=== PATIENT | male | born 1985 | race Caucasian/White ===

== ENCOUNTER 2018-01-02 09:24 | Inpatient (IN) | payer SELFPAY ==
[~2018-01-02] VITALS: Ht 190.5 cm; Wt 178.3 kg
[2018-01-02] MEDS ORDERED: KETOROLAC TROMETHAMINE 30 MG/ML VIAL IV STA (09:43)
[2018-01-02] MEDS ORDERED: VANCOMYCIN 1GM/NS 250 ML 250 ML IV ONE (09:45)
[2018-01-02] MEDS ORDERED: PIPER-TAZ 3.375 GM 50 ML IV ONE (09:45)
[2018-01-02] MEDS ORDERED: SODIUM CHLORIDE 0.9% 1000ML 1,000 ML IV ONE (09:45)
[2018-01-02] MEDS ORDERED: MORPHINE SULFATE 4 MG/ML SYR IV ONE (09:45)
[2018-01-02] MEDS ORDERED: MORPHINE SULFATE 2 MG/ML SYR ONE (10:14)
[2018-01-02 10:57] LABS: ALANINE AMINOTRANSFERASE 14 IU/L (0-55); ALBUMIN/GLOBULIN RATIO 0.6 (0.8-2.0); ALKALINE PHOSPHATASE 95 IU/L (40-150); ANION GAP 13.1 mmol/L (8-16); BLOOD UREA NITROGEN 8 mg/dL (7-26); BUN/CREATININE RATIO 10 (6-25); CALCIUM 9.4 mg/dL (8.4-10.2); CARBON DIOXIDE 25 mmol/L (22-29); CHLORIDE 104 mmol/L (98-107); CREATININE, SERUM 0.81 mg/dL (0.72-1.25); EST GLOMERULAR FILTRATION RATE > 60 ML/MIN (60-); GLUCOSE 162 mg/dL (74-118); POTASSIUM 4.1 mmol/L (3.5-5.1); SODIUM 138 mmol/L (136-145)
[2018-01-02] MEDS ORDERED: LIDOCAINE 2%/ EPINEPHRINE 20ML MDV ONE (10:57)
[2018-01-02 11:28] LABS: BASOPHILS # (AUTO) 0.1 (0.0-0.1); BASOPHILS % 0.3 % (0.0-1.0); EOSINOPHILS # (AUTO) 0.2 (0.0-0.4); EOSINOPHILS % 1.4 % (0.0-6.0); HEMATOCRIT 41.1 % (38.2-49.6); HEMOGLOBIN 14.2 g/dL (14.0-18.0); LYMPHOCYTES # (AUTO) 1.4 (1.0-3.2); LYMPHOCYTES % 8.7 % (18.0-39.1); MEAN CORPUSCULAR HEMOGLOBIN 30.5 pg (28-32); MEAN CORPUSCULAR HGB CONC 34.5 g/dL (31-35); MEAN CORPUSCULAR VOLUME 88.2 fL (81-99); MONOCYTES # (AUTO) 1.3 (0.2-0.8); MONOCYTES % 8.3 % (4.4-11.3); NEUTROPHILS # (AUTO) 12.6 (2.1-6.9); NEUTROPHILS % 80.7 % (38.7-80.0); PLATELET COUNT 318 x10e3/uL (140-360); RED BLOOD COUNT 4.66 x10e6/uL (4.3-5.7); RED CELL DISTRIBUTION WIDTH 13.1 % (11.7-14.4)
--- NOTE | 2018-01-02 11:31 | Diagnostic Imaging Report ---
PROCEDURE:X-RAY LEFT KNEE, ONE OR TWO VIEWS COMPARISON:None. INDICATIONS:LEFT KNEE SWELLING, SKIN INFECTION FINDINGS: The bones are well-mineralized. There are no fractures, subluxations, lytic or blastic lesions. No bony erosions or evidence of osteomyelitis. 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 Degenerative spurring of the patella. There is no evidence of a joint effusion. Diffuse soft tissue swelling. CONCLUSION: No acute bony abnormality. Diffuse soft tissue swelling. Alan Flores D.O. Dictated by: Alan Flores D.O. on 01/02/2018 at 11:33 Electronically approved by: Alan Flores D.O. on 01/02/2018 at 11:33
[2018-01-02 12:13] LABS: BODY FLUID APPEARANCE TURBID; BODY FLUID COLOR RED
[2018-01-02 12:14] LABS: GLUCOSE,BODY FLUID 9 mg/dL; RBC,BODY FLUID 110286 cells/uL; WBC,BODY FLUID 176814 cells/uL
[2018-01-02 12:16] LABS: BODY FLUID TYPE ASPIRATE
[2018-01-02] MEDS ORDERED: ONDANSETRON HCL INJ 2 MG/ML VIAL IV PRN (12:45)
[2018-01-02] MEDS ORDERED: SODIUM CHLORIDE FLUSH 10 ML SYR INJ PRN (12:45)
[2018-01-02] MEDS ORDERED: PIPER-TAZ 3.375 GM 50 ML IV SCH (12:45)
[2018-01-02] MEDS ORDERED: VANCOMYCIN 1GM/NS 250 ML 250 ML IV SCH ×2 (12:45→23:00)
[2018-01-02] MEDS ORDERED: ONDANSETRON HCL 4 MG ORAL DISINTEGRATING TAB SL PRN (13:00)
[2018-01-02 13:25] LABS: LYMPHOCYTES,BODY FLUID 11 %; MONO/MACROPHG,BODY FLUID 8 %; NEUTROPHILS,BODY FLUID 79 %; OTHER CELLS,BODY FLUID 2 %
--- NOTE | 2018-01-02 14:03 | Diagnostic Imaging Report ---
TECHNIQUE: Computed tomography imaging of the LEFT KNEE was performed WITHOUT injected contrast. HISTORY: Knee pain COMPARISON: None available. FINDINGS: No fracture. No periostitis or cortical erosion. Soft tissue abscess within the medial right lower extremity extending approximately 13 cm in craniocaudal dimension and measuring approximately 7.5 x 3 cm in maximum axial dimension. Adjacent skin thickening at the medial leg and generalized subcutaneous edema. No knee joint effusion. IMPRESSION: 13 cm soft tissue abscess medial lower extremity at the level of the knee. Cellulitis. Signed by: Dr. Nakul Freeman M.D. on 01/02/2018 1:59 PM
--- OUTSIDE RECORDS SUMMARY | 2018-01-02 14:23 | XMS REPORT ---
Author Author [facility] Address Unknown Phone Unavailable Care Team Providers Care Roll Off Driver Name Role Phone ANIRUDH WALTERS Unavailable Unavailable Problems This patient has no known problems. Allergies, Adverse Reactions, Alerts This patient has no known allergies or adverse reactions. Medications This patient has no known medications. Results Test Description Test Time Test Comments Text Results Atomic Results Result Comments CT LEFT LOWER EXTREMITY W [place] [id number] [place] [address] Patient Name: JASEN DENISE II MR #: [id number] : 1985 Age/Sex: 32/M Req #: [id number] Adm Physician: Ordered by: ANIRUDH WALTERS MD Report #: [id number] Location: ER Room/Bed: Procedure: [id number] CT/CT LEFT LOWER EXTREMITY W Exam Date: 01/02/18 Exam Time: 1316 REPORT STATUS: Signed TECHNIQUE: Computed tomography imaging of the LEFT KNEE was performed WITHOUT injected contrast. HISTORY: Knee pain COMPARISON: None available. FINDINGS : No fracture. No periostitis or cortical erosion. Soft tissue abscess within the medial right lower extremity extending approximately 13 cm in craniocaudal dimension and measuring approximately 7.5 x 3 cm in maximum axial dimension. Adjacent skin thickening at the medial leg and generalized subcutaneous edema. No knee joint effusion. IMPRESSION: 13 cm soft tissue abscess medial lower extremity at the level of the knee. Cellulitis. Signed by: Dr. Tashi Tompkins M.D. on 01/02/2018 1:59 PM Dictated By: TASHI TOMPKINS MD [id number] Transcribed By: JAZZMINE on 01/02/18 2805 COPY TO: ANIRUDH WALTERS MD KNEE LEFT 1-2 VIEWS [place] [address] Patient Name: JASEN DENISE II MR #: [id number] : 1985 Age/Sex: 32/M Req #: [id number] Adm Physician: Ordered by: ANIRUDH WALTERS MD Report #: [id number] Location: ER Room/Bed: Procedure: [id number] DX/KNEE LEFT 1-2 VIEWS Exam Date: 01/02/18 Exam Time: 1010 REPORT STATUS: Signed PROCEDURE: X-RAY LEFT KNEE, ONE OR TWO VIEWS COMPARISON: None. INDICATIONS: LEFT KNEE SWELLING, SKIN INFECTION FINDINGS: The bones are well- mineralized. There are no fractures, subluxations, lytic or blastic lesions. No bony erosions or evidence of osteomyelitis. 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 Degenerative spurring of the patella. There is no evidence of a joint effusion. Diffuse soft tissue swelling. CONCLUSION: No acute bony abnormality. Diffuse soft tissue swelling. Faustino Flores D.O. Dictated by: Faustino Flores D.O. on at 11:33 Electronically approved by: Faustino Flores D.O. on 01/02 at 11:33 Dictated By: FAUSTINO FLORES DO 1133 Transcribed By: ROD on 01/02/18 1133 COPY TO: ANIRUDH WALTERS MD
[2018-01-02] MEDS ORDERED: SODIUM CHLORIDE 0.9% 50ML 50 ML ONE (14:30)
[2018-01-02] MEDS ORDERED: IOPAMIDOL 370 MG/ML 200 ML INFUS..BTL INJ ONE (14:31)
[2018-01-02] MEDS: SODIUM CHLORIDE 0.9% 1000ML 1,000 ML IV SCH ×2 (14:34→17:28)
[2018-01-02 15:31] LABS: RBC,BODY FLUID 31680 cells/uL; WBC,BODY FLUID 39699 cells/uL
--- NOTE | 2018-01-02 16:22 | Diagnostic Imaging Report ---
PROCEDURE: A single AP view of the chest. COMPARISON: None. INDICATIONS: SEPSIS FINDINGS: See impression. IMPRESSION: 1. mildly hypoinflated lungs. No consolidation or effusion. 2. Cardiac silhouette is unremarkable. Mild central pulmonary venous congestion. No overt pulmonary edema. 3. No acute bony abnormalities. Nas Reeves M.D. Dictated by: Nas Reeves M.D. on 01/02/2018 at 16:24 Electronically approved by: Nas Reeves M.D. on 01/02/2018 at 16:24
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
--- NOTE | 2018-01-02 16:40 | History and Physical ---
ADDENDUM Case discussed at length with emergency room physician. Approximately 100 mL of bloody purulence fluid was aspirated from the joint itself under ultrasound guidance. Job#: [id number] OFELIA
[2018-01-02 17:00] VITALS: BP 146/74
[2018-01-02] MEDS: PIPER-TAZ 3.375 GM 100 ML IV SCH (17:17)
[2018-01-02] MEDS: FAMOTIDINE 20 MG/2 ML VIAL IV SCH (17:17)
[2018-01-02] MEDS: MORPHINE SULFATE 2 MG/ML SYR IV PRN ×2 (17:18→22:16)
[2018-01-02 17:51] VITALS: BP 146/74
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
[2018-01-02 18:21] VITALS: BP 146/74
[2018-01-02 20:11] VITALS: BP 140/58
[2018-01-02] MEDS: VANCOMYCIN HCL 1.5 GM in SODIUM CHLORIDE 0.9% 250ML 300 ML IV SCH (22:08)
[2018-01-02] MEDS: HEPARIN SOD (PORCINE) 5,000 UNIT/ML VIAL SC SCH (22:09)
[2018-01-03] VITALS (8 sets, daily range): BP systolic 114–150; BP diastolic 54–73
[2018-01-03] MEDS: PIPER-TAZ 3.375 GM 100 ML IV SCH ×5 (00:06→22:50)
[2018-01-03] MEDS: MORPHINE SULFATE 2 MG/ML SYR IV PRN ×3 (05:17→19:53)
[2018-01-03 06:40] LABS: BASOPHILS # (AUTO) 0.1 (0.0-0.1); BASOPHILS % 0.5 % (0.0-1.0); EOSINOPHILS # (AUTO) 0.2 (0.0-0.4); HEMATOCRIT 34.5 % (38.2-49.6); HEMOGLOBIN 11.8 g/dL (14.0-18.0); LYMPHOCYTES # (AUTO) 1.4 (1.0-3.2); LYMPHOCYTES % 12.7 % (18.0-39.1); MEAN CORPUSCULAR HEMOGLOBIN 31.4 pg (28-32); MEAN CORPUSCULAR HGB CONC 34.2 g/dL (31-35); MEAN CORPUSCULAR VOLUME 91.8 fL (81-99); MONOCYTES # (AUTO) 0.8 (0.2-0.8); MONOCYTES % 7.8 % (4.4-11.3); NEUTROPHILS # (AUTO) 8.3 (2.1-6.9); NEUTROPHILS % 76.3 % (38.7-80.0); PLATELET COUNT 246 x10e3/uL (140-360); RED BLOOD COUNT 3.76 x10e6/uL (4.3-5.7); RED CELL DISTRIBUTION WIDTH 13.2 % (11.7-14.4)
[2018-01-03] MEDS: SODIUM CHLORIDE 0.9% 1000ML 1,000 ML IV SCH ×2 (07:08→19:52)
[2018-01-03 07:10] LABS: ALANINE AMINOTRANSFERASE 9 IU/L (0-55); ALBUMIN 2.3 g/dL (3.5-5.0); ALBUMIN/GLOBULIN RATIO 0.5 (0.8-2.0); ALKALINE PHOSPHATASE 73 IU/L (40-150); ANION GAP 11.9 mmol/L (8-16); BLOOD UREA NITROGEN 11 mg/dL (7-26); BUN/CREATININE RATIO 13 (6-25); CALCIUM 8.7 mg/dL (8.4-10.2); CARBON DIOXIDE 25 mmol/L (22-29); CHLORIDE 104 mmol/L (98-107); CREATININE, SERUM 0.83 mg/dL (0.72-1.25); EST GLOMERULAR FILTRATION RATE > 60 ML/MIN (60-); GLUCOSE 109 mg/dL (74-118); POTASSIUM 3.9 mmol/L (3.5-5.1); SODIUM 137 mmol/L (136-145)
[2018-01-03] MEDS: FAMOTIDINE 20 MG/2 ML VIAL IV SCH ×2 (08:50→17:00)
[2018-01-03] MEDS: HEPARIN SOD (PORCINE) 5,000 UNIT/ML VIAL SC SCH ×2 (09:00→21:00)
[2018-01-03] MEDS: VANCOMYCIN HCL 1.5 GM in SODIUM CHLORIDE 0.9% 250ML 300 ML IV SCH (09:40)
[2018-01-03] MEDS ORDERED: BACITRACIN 50,000 UNIT VIAL ONE (11:23)
[2018-01-03] MEDS ORDERED: BUPIVACAINE HCL 0.5% INJ 30 ML VIAL INJ ONE (11:23)
[2018-01-03] MEDS ORDERED: DIPHENHYDRAMINE HCL INJ 50 MG/ML VIAL IM/IV PRN (12:45)
[2018-01-03] MEDS ORDERED: VANCOMYCIN 1GM/NS 250 ML 250 ML IV SCH (12:45)
[2018-01-03] MEDS ORDERED: PROMETHAZINE HCL (IM) 25 MG/ML VIAL INJ PRN (12:45)
[2018-01-03] MEDS ORDERED: ZOLPIDEM TARTRATE 5 MG TAB PO PRN (12:45)
[2018-01-03] MEDS ORDERED: DOCUSATE SODIUM 100 MG CAP PO PRN (12:45)
[2018-01-03] MEDS ORDERED: ONDANSETRON HCL INJ 2 MG/ML VIAL IV PRN (12:45)
[2018-01-03] MEDS ORDERED: ACETAMINOPHEN 650 MG SUPP PR PRN (12:45)
[2018-01-03] MEDS ORDERED: ONDANSETRON HCL 4 MG ORAL DISINTEGRATING TAB SL PRN (13:00)
[2018-01-03] MEDS ORDERED: MIDAZOLAM HCL 2 MG/2 ML VIAL ONE (14:50)
[2018-01-03] MEDS ORDERED: FENTANYL CITRATE/PF 100MCG/2 ML INJ ONE (14:50)
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
[2018-01-03] MEDS ORDERED: CELECOXIB 100 MG CAP PO SCH (17:00)
[2018-01-03] MEDS: ASPIRIN 325 MG TAB PO SCH (17:12)
[2018-01-03] MEDS: CELECOXIB 200 MG CAP PO SCH (17:12)
[2018-01-03] MEDS: ACETAMINOPHEN 1000 MG/100 ML IV SCH (17:12)
--- NOTE | 2018-01-03 17:27 | Operative Report ---
DATE OF PROCEDURE: January 03, 2018 PHYSICS PROFESSOR: Kedar Shin PA-C The patient was brought to the operating room for induction of anesthesia. Throughout this case, my PA's assistance was necessary for retraction of soft tissue and positioning of the extremity. This allows for efficient and technically successful execution of the operation and is considered medically necessary. PREOPERATIVE DIAGNOSIS: The patient is a 32-year-old gentleman with a large abscess in the inner aspect of his left leg. The findings and options have been discussed. We plan on irrigation and debridement. The risks and benefits were explained. He stated he understood and wished to proceed. DESCRIPTION OF PROCEDURE: The patient was brought to the operating room. Added time and complexity were encountered due to the patient's size of 400 pounds. His left leg was prepped and draped in a sterile manner. A preoperative time out was performed. Two incisions were made at the area of most fluctuance in the inner aspect of the left leg. Decompression of nat purulent material was immediately encountered. The 2 areas communicated with each other. The surrounding soft tissue was indurated, but there did not appear to be any additional pockets of fluid. Cultures were taken. The area was thoroughly irrigated with sterile saline. Necrotic material was sharply debrided with a surgical knife. The wound was then packed with Betadine-soaked Kerlix gauze. A sterile wrap was applied. The patient was extubated and transported to the recovery room in stable condition. Blood loss was minimal. All needle and sponge counts were correct. Job#: [id number]
--- NOTE | 2018-01-03 17:51 | Diagnostic Imaging Report ---
PROCEDURE: A single AP view of the chest. COMPARISON: None. INDICATIONS: RIGHT PICC LINE PLACEMENT FINDINGS: Lines/tubes: Right PICC line tip is at high SVC. Lungs: The lungs are moderately inflated with atelectasis. There is no evidence of pneumonia or pulmonary edema. Pleura: There is no pleural effusion or pneumothorax. Heart and mediastinum: The heart and the mediastinum are unremarkable. Bones: No acute bony abnormality. IMPRESSION: Right PICC line with tip in high SVC. Dictated by: Lucius Forbes M.D. on 01/03/2018 at 17:53 Electronically approved by: Lucius Forbes M.D. on 01/03/2018 at 17:53
[2018-01-03] MEDS ORDERED: SEVOFLURANE INHAL SOLN 250 ML PEN BTL ONE (18:38)
[2018-01-03] MEDS ORDERED: DEXAMETHASONE SOD PHOS INJ 4 MG/ML VIAL ONE (18:38)
[2018-01-03] MEDS ORDERED: LIDOCAINE HCL 2% LOCAL INJ 5 ML SDV VIAL INJ ONE (18:38)
[2018-01-03] MEDS ORDERED: ONDANSETRON HCL INJ 2 MG/ML VIAL ONE (18:38)
[2018-01-03] MEDS ORDERED: PROPOFOL IV EMULSION 10 MG/ML 20 ML VIAL ONE (18:38)
[2018-01-03] MEDS: VANCOMYCIN 1GM/NS 250 ML 250 ML IV SCH (19:52)
[2018-01-04] VITALS (7 sets, daily range): BP systolic 112–133; BP diastolic 65–82
[2018-01-04] MEDS: ACETAMINOPHEN 1000 MG/100 ML IV SCH ×2 (00:28→05:23)
[2018-01-04] MEDS: MORPHINE SULFATE 2 MG/ML SYR IV PRN ×2 (03:57→08:01)
[2018-01-04] MEDS: PIPER-TAZ 3.375 GM 100 ML IV SCH ×4 (03:57→21:45)
[2018-01-04] MEDS: SODIUM CHLORIDE 0.9% 1000ML 1,000 ML IV SCH (05:00)
[2018-01-04] MEDS: VANCOMYCIN 1GM/NS 250 ML 250 ML IV SCH (06:57)
[2018-01-04] MEDS: BUDESONIDE/FORMOTEROL 160/4.5MCG INHALER INH SCH ×2 (07:00→19:15)
[2018-01-04] MEDS: FAMOTIDINE 20 MG/2 ML VIAL IV SCH (08:01)
[2018-01-04] MEDS: CELECOXIB 200 MG CAP PO SCH ×2 (08:01→16:40)
[2018-01-04] MEDS: ASPIRIN 325 MG TAB PO SCH ×2 (08:01→16:40)
[2018-01-04] MEDS: HEPARIN SOD (PORCINE) 5,000 UNIT/ML VIAL SC SCH ×2 (08:02→21:00)
[2018-01-04] MEDS: KETOROLAC TROMETHAMINE 30 MG/ML VIAL IV PRN ×2 (10:06→18:38)
--- NOTE | 2018-01-04 11:35 | Discharge Summary ---
FINAL DIAGNOSES 1. Left thigh abscess, status post irrigation and debridement per orthopedic surgery. No evidence of septic arthritis. 2. Morbid obesity. 3. History of hypertension. ADMISSION HISTORY AND HOSPITAL COURSE: Mr. Chilel is a 32-year-old male who came in with leg swelling. Found to have an abscess on the left lower extremity near the knee. I and D was done by orthopedics. ID was consulted. The patient was started on antibiotic. The patient has been doing well. The patient will be discharged home if cleared by other services. P.O. antibiotics have been written by infectious disease. STEVEN MICHEL MD Job#: [id number]
[2018-01-04] MEDS ORDERED: ACETAMINOPHEN 1000 MG/100 ML IV PRN (12:45)
[2018-01-04] MEDS: FAMOTIDINE 20 MG TAB PO SCH (16:40)
[2018-01-04] MEDS: VANCOMYCIN HCL 1.5 GM in SODIUM CHLORIDE 0.9% 250ML 300 ML IV SCH (17:50)
[2018-01-04] MEDS: HYDROCODONE/APAP 5MG-325MG TAB PO PRN (22:02)
[2018-01-05] VITALS: BP 127/77
[2018-01-05] MEDS: PIPER-TAZ 3.375 GM 100 ML IV SCH ×4 (03:41→22:21)
[2018-01-05 04:00] VITALS: BP 127/80
[2018-01-05] MEDS: KETOROLAC TROMETHAMINE 30 MG/ML VIAL IV PRN (05:42)
[2018-01-05] MEDS: VANCOMYCIN HCL 1.5 GM in SODIUM CHLORIDE 0.9% 250ML 300 ML IV SCH ×2 (05:52→18:19)
[2018-01-05] MEDS: BUDESONIDE/FORMOTEROL 160/4.5MCG INHALER INH SCH ×2 (07:00→20:30)
[2018-01-05 07:32] VITALS: BP 152/65
[2018-01-05] MEDS: HYDROCODONE/APAP 5MG-325MG TAB PO PRN (09:15)
[2018-01-05] MEDS: FAMOTIDINE 20 MG TAB PO SCH ×2 (09:17→15:42)
[2018-01-05] MEDS: ASPIRIN 325 MG TAB PO SCH ×2 (09:17→16:33)
[2018-01-05] MEDS: CELECOXIB 200 MG CAP PO SCH ×2 (09:17→16:33)
[2018-01-05] MEDS: HEPARIN SOD (PORCINE) 5,000 UNIT/ML VIAL SC SCH ×2 (09:18→21:00)
[2018-01-05 11:20] VITALS: BP 132/68
--- NOTE | 2018-01-05 11:41 | Discharge Summary ---
FINAL DIAGNOSES 1. Left thigh abscess status post irrigation and debridement by orthopedic surgery. No evidence of septic arthritis. 2. Morbid obesity. 3. Hypertension. Mr. Chilel is a 32-year-old male who came in with leg swelling and pain. Patient's knee was drained in the emergency room. Orthopedics was consulted and they found an abscess in the left lower extremity near the knee however the orthopedic notes says the patient's joint was not involved and there is no septic joint. Patient received IV antibiotics, incision and drainage. He has been doing well. He will be discharged home to follow up with his primary care physician. His wound culture grew out MSSA and antibiotics have been given by Dr. Thompson. STEVEN MICHEL MD Job#: [id number] DG
[2018-01-05] MEDS: HYDROCODONE/APAP 7.5MG-325MG 1 EA TAB PO PRN ×4 (13:51→23:00)
[2018-01-05 15:43] VITALS: BP 133/60
[2018-01-05 20:00] VITALS: BP 133/58
[2018-01-06] VITALS (7 sets, daily range): BP systolic 111–149; BP diastolic 54–83
[2018-01-06] MEDS: PIPER-TAZ 3.375 GM 100 ML IV SCH ×2 (03:35→09:00)
[2018-01-06] MEDS: VANCOMYCIN HCL 1.5 GM in SODIUM CHLORIDE 0.9% 250ML 300 ML IV SCH (05:07)
[2018-01-06] MEDS: HYDROCODONE/APAP 7.5MG-325MG 1 EA TAB PO PRN (06:55)
[2018-01-06] MEDS: BUDESONIDE/FORMOTEROL 160/4.5MCG INHALER INH SCH ×2 (07:27→20:00)
[2018-01-06] MEDS: FAMOTIDINE 20 MG TAB PO SCH ×2 (08:29→16:10)
[2018-01-06] MEDS: ASPIRIN 325 MG TAB PO SCH ×2 (08:29→16:10)
[2018-01-06] MEDS: CELECOXIB 200 MG CAP PO SCH ×2 (08:29→16:10)
[2018-01-06] MEDS: HEPARIN SOD (PORCINE) 5,000 UNIT/ML VIAL SC SCH ×2 (08:30→21:13)
[2018-01-06] MEDS: HYDROCODONE/APAP 5MG-325MG TAB PO PRN ×3 (09:00→23:19)
[2018-01-06] MEDS ORDERED: ALTEPLASE RECOMBINANT 2 MG/2 ML VIAL IV NR ×2 (13:00→14:15)
[2018-01-06] MEDS ORDERED: CEFAZOLIN SOD 2 GM in WATER STERILE 10ML VIAL 10 ML IV SCH (14:00)
[2018-01-06] MEDS: KETOROLAC TROMETHAMINE 30 MG/ML VIAL IV PRN (19:44)
[2018-01-06] MEDS: CEFAZOLIN SOD 2 GM in WATER STERILE 10ML VIAL 10 ML IV SCH (20:29)
[2018-01-07] VITALS (8 sets, daily range): BP systolic 119–147; BP diastolic 56–70
[2018-01-07] MEDS: CEFAZOLIN SOD 2 GM in WATER STERILE 10ML VIAL 10 ML IV SCH ×5 (00:46→23:27)
[2018-01-07 07:30] LABS: BASOPHILS # (AUTO) 0.1 (0.0-0.1); BASOPHILS % 0.9 % (0.0-1.0); EOSINOPHILS # (AUTO) 0.4 (0.0-0.4); EOSINOPHILS % 4.4 % (0.0-6.0); HEMATOCRIT 35.3 % (38.2-49.6); HEMOGLOBIN 12.1 g/dL (14.0-18.0); LYMPHOCYTES # (AUTO) 1.4 (1.0-3.2); MEAN CORPUSCULAR HEMOGLOBIN 30.3 pg (28-32); MEAN CORPUSCULAR HGB CONC 34.3 g/dL (31-35); MEAN CORPUSCULAR VOLUME 88.5 fL (81-99); MONOCYTES # (AUTO) 0.6 (0.2-0.8); MONOCYTES % 6.7 % (4.4-11.3); NEUTROPHILS # (AUTO) 5.8 (2.1-6.9); PLATELET COUNT 287 x10e3/uL (140-360); RED BLOOD COUNT 3.99 x10e6/uL (4.3-5.7); RED CELL DISTRIBUTION WIDTH 12.3 % (11.7-14.4)
[2018-01-07] MEDS: BUDESONIDE/FORMOTEROL 160/4.5MCG INHALER INH SCH ×2 (07:48→20:30)
[2018-01-07 08:09] LABS: ANION GAP 12.1 mmol/L (8-16); BLOOD UREA NITROGEN 15 mg/dL (7-26); BUN/CREATININE RATIO 20 (6-25); CARBON DIOXIDE 25 mmol/L (22-29); CHLORIDE 105 mmol/L (98-107); CREATININE, SERUM 0.76 mg/dL (0.72-1.25); EST GLOMERULAR FILTRATION RATE > 60 ML/MIN (60-); GLUCOSE 100 mg/dL (74-118); POTASSIUM 4.1 mmol/L (3.5-5.1); SODIUM 138 mmol/L (136-145)
[2018-01-07] MEDS: CELECOXIB 200 MG CAP PO SCH ×2 (08:30→16:38)
[2018-01-07] MEDS: ASPIRIN 325 MG TAB PO SCH ×2 (08:30→16:38)
[2018-01-07] MEDS: KETOROLAC TROMETHAMINE 30 MG/ML VIAL IV PRN (08:30)
[2018-01-07] MEDS: FAMOTIDINE 20 MG TAB PO SCH ×2 (08:30→16:38)
[2018-01-07] MEDS: HEPARIN SOD (PORCINE) 5,000 UNIT/ML VIAL SC SCH ×2 (09:22→21:00)
[2018-01-07] MEDS: HYDROCODONE/APAP 5MG-325MG TAB PO PRN ×3 (12:15→20:56)
[2018-01-08] VITALS (7 sets, daily range): BP systolic 118–154; BP diastolic 56–71
[2018-01-08] MEDS: HYDROCODONE/APAP 5MG-325MG TAB PO PRN ×6 (01:22→23:55)
[2018-01-08] MEDS: CEFAZOLIN SOD 2 GM in WATER STERILE 10ML VIAL 10 ML IV SCH ×4 (06:05→23:54)
[2018-01-08] MEDS: CELECOXIB 200 MG CAP PO SCH ×2 (07:45→17:06)
[2018-01-08] MEDS: FAMOTIDINE 20 MG TAB PO SCH ×2 (07:45→16:35)
[2018-01-08] MEDS: ASPIRIN 325 MG TAB PO SCH ×2 (08:15→17:06)
[2018-01-08] MEDS: HEPARIN SOD (PORCINE) 5,000 UNIT/ML VIAL SC SCH ×2 (08:15→21:17)
--- NOTE | 2018-01-08 13:20 | Diagnostic Imaging Report ---
Exam: Left kneeCT with contrast. History: Cellulitis. Abscess. Redness. Decreased range of motion. Comparison:CT scan January 02, 2018 Technique: Utilizing a 64-slice multidetector CT, axial imaging was performed through the left knee with IV contrast. 100 cc Isovue 370 contrast material was administered. Multiplanar reformation was performed. Findings: There is no acute fracture, dislocation or evidence of avascular necrosis. No osseous erosion is seen. No radiopaque foreign body is seen. There is skin thickening and a skin defect along the lateral aspect of the leg at the level of the distal femur and at the level of the proximal tibia. This is best seen on coronal reformatted image 41. The previously seen abscess is smaller in size and now contains small foci of air. The residual abscess now measures approximately 13.0 x 2.2 x 1.4 cm previously 13.0 x 7.5 x 3.0 cm. Impression: Smaller soft tissue abscess in the medial lower extremity at the level of the knee now contains small foci of air and there are now skin defects. Signed by: Dr. Saravanan Steinberg M.D. on 01/08/2018 1:17 PM
[2018-01-08] MEDS ORDERED: IOPAMIDOL 370 MG/ML 200 ML INFUS..BTL INJ ONE (15:23)
[2018-01-08] MEDS ORDERED: SODIUM CHLORIDE 0.9% 50ML 50 ML ONE (15:23)
[2018-01-08] MEDS: BUDESONIDE/FORMOTEROL 160/4.5MCG INHALER INH SCH (19:40)
[2018-01-09] VITALS: BP 125/74
[2018-01-09 04:00] VITALS: BP 105/69
[2018-01-09] MEDS: HYDROCODONE/APAP 5MG-325MG TAB PO PRN ×3 (05:51→15:13)
[2018-01-09] MEDS: CEFAZOLIN SOD 2 GM in WATER STERILE 10ML VIAL 10 ML IV SCH ×2 (05:51→12:30)
[2018-01-09] MEDS: FAMOTIDINE 20 MG TAB PO SCH (07:55)
[2018-01-09] MEDS: CELECOXIB 200 MG CAP PO SCH (07:55)
[2018-01-09 08:08] VITALS: BP 115/56
[2018-01-09] MEDS: ASPIRIN 325 MG TAB PO SCH (08:15)
[2018-01-09] MEDS: HEPARIN SOD (PORCINE) 5,000 UNIT/ML VIAL SC SCH (08:55)
[2018-01-09] MEDS: BUDESONIDE/FORMOTEROL 160/4.5MCG INHALER INH SCH (10:17)
[2018-01-09 11:46] VITALS: BP 126/56
[2018-01-09] MEDS ORDERED: COLACE100 M1 PO (15:03)
[2018-01-09] MEDS ORDERED: TYLENOL WITH C1 EACH PO ×2 (15:03→15:57)
[2018-01-09] MEDS ORDERED: ZYVOX600 MG PO ×2 (15:05→15:56)
[2018-01-09] MEDS ORDERED: DOCUSATE SODIU100 MG PO (15:57)
--- NOTE | 2018-01-09 16:09 | Discharge Summary ---
ADDENDUM: Patient's father had requested additional days in hospital because of the patient's pain in the leg. An MRI was ordered by Dr. Thompson to confirm resolution and sparing of the knee joint and bone. Patient, however, was too large for the MRI. A CT was performed which revealed the abscess was drained and the left lower extremity and the knee spared. Cultures grew MSSA. The patient is discharged. He has a walker at home. Instructed on wound care, and he will be discharged on Tylenol No. 3 and Zyvox [address] Thompson. CHRISTI CORRAL MD Job#: [id number] EV
[2018-01-09 16:20] VITALS: BP 130/60
== END 2018-01-09 16:48 | disposition home health service (06) | DRG 571 ==
LOC: ER 09:24 → ERHOLD 14:18 → MED/SURG3 16:15
PROVIDERS: ADMIT Internal Medicine; ATTEND Internal Medicine
PROC: 0S9D3ZZ Drainage of Left Knee Joint, Percutaneous Approach (ICD-10-PCS; 2018-01-02)
PROC: 02HV33Z Insertion of Infusion Device into Superior Vena Cava, Percutaneous Approach (ICD-10-PCS; 2018-01-03)
PROC: 0JBM0ZZ Excision of Left Upper Leg Subcutaneous Tissue and Fascia, Open Approach (ICD-10-PCS; principal; 2018-01-03 12:17)
DX: L02.416 Cutaneous abscess of left lower limb (principal); Z68.42 Body mass index [BMI] 45.0-49.9, adult; E66.01 Morbid (severe) obesity due to excess calories; B95.61 Methicillin susceptible Staphylococcus aureus infection as the cause of diseases classified elsewhere; Z87.820 Personal history of traumatic brain injury; I10 Essential (primary) hypertension
CPT/HCPCS: 36415; 36569; 71045; 73701; 80048; 80053; 80202; 82945; 83036; 83605; 84157; 84550; 85025; 86140; 87040; 87070; 87071; 87075; 87186; 87205; 89051; 93971; 94640; 97139; 99284; J0690; J1100; J1644; J1885; J2001; J2250; J2270; J2405; J2543; J2997; J3370; J7030; J7050; Q9967

== ENCOUNTER 2018-01-15 09:27 | Emergency (ER) | payer SELFPAY ==
[~2018-01-15] VITALS: Ht 190.5 cm; Wt 178.3 kg
[~2018-01-15 09:27] MED LIST: COLACE100 M1 PO; DOCUSATE SODIU100 MG PO; TYLENOL WITH C1 EACH PO; ZYVOX600 MG PO
--- OUTSIDE RECORDS SUMMARY | 2018-01-15 09:30 | XMS REPORT | Continuity of Care Document ---
Author Author [facility] Organization [facility] Address [address] [place] [address] Phone Unavailable Care Team Providers Care Audio Engineer Name Role Phone NO, PCP PCP Unavailable Advance Directives Directive Response Recorded Date/Time Does the patient have an advance directive? No 01/02/18 6:10pm If yes, is advance directive on file with [facility]? No 01/02/18 6:10pm If not on file with [facility] will patient provide a copy? No 01/02/18 6:10pm Do you have a Directive to Physician? No 01/02/18 10:30am Do you have a Medical Power of Biodiesel Engine Specialist? No 01/02/18 10:30am Do you have an out of hospital Do Not Resuscitate Order? No 01/02/18 10:30am Do you have any special needs we should be aware of? No 01/02/18 10:30am Do you have a support person here with you today? Yes 01/02/18 10:30am Did patient receive Notice of Privacy Practices? Yes 01/02/18 10:30am Did patient receive patient rights and responsibilities? Yes 01/02/18 10:30am Problems Medical Problem Onset Date Status Cellulitis of left lower extremity Unknown Septic arthritis of knee, left Unknown Medications Current Home Medications Medication Dose Units Route Directions Days Qty Instructions Start Date Acetaminophen With Codeine (Tylenol With Codeine #3 Tablet) 1 Each Tablet 300 Mg Oral Every 6 Hours as needed for Pain Docusate Sodium 100 Mg Capsule 100 Mg Oral Twice A Day Linezolid (Zyvox) 600 Mg Tablet 600 Mg Oral Every 12 Hours 30 Tab Social History Social History Problem Response Recorded Date/Time Onset Date Status Hx Psychiatric Problems No 01/02/2018 6:10pm Not Applicable Not Applicable Hx Eating Disorder No 01/02/2018 6:10pm Not Applicable Not Applicable Hx Substance Use Disorder No 01/02/2018 6:10pm Not Applicable Not Applicable Hx Depression No 01/02/2018 6:10pm Not Applicable Not Applicable Hx Alcohol Use No 01/02/2018 6:10pm Not Applicable Not Applicable Hx Substance Use Treatment No 01/02/2018 6:10pm Not Applicable Not Applicable Hx Physical Abuse No 01/02/2018 6:10pm Not Applicable Not Applicable Smoking Status Start Date Stop Date Never Smoker Hospital Discharge Instructions No hospital discharge instruction information available. Plan of Care Discharge Date 01/09/18 4:48pm Disposition HOME, SELF-CARE Instructions/Education Provided Cellulitis Prescriptions See Medication Section Additional Instructions/Education wound care- Betadine wet to dry dressing follow up with PCP in 1 week Functional Status Query Response Date Recorded FUNCTIONAL STATUS . January 03, 2018 2:30pm Assistive Devices Straight Cane January 02, 2018 5:51pm Ambulation Ability Standby Assistance 1 person assist January 02, 2018 5:51pm Toileting Ability Independent January 06, 2018 9:59am Allergies, Adverse Reactions, Alerts No known allergies. Immunizations No immunization information available. Vital Signs Acute Vital Signs Vital Response Date/Time Temperature (Fahrenheit) 96.6 degrees F (97.6 - 99.5) 01/09/2018 4:20pm Pulse Pulse Rate (adult) 61 bpm (60 - 90) 01/09/2018 4:20pm Respiratory Rate 18 bpm (12 - 24) 01/09/2018 4:20pm Blood Pressure 130/60 mm Hg 01/09/2018 4:20pm Height 6 ft 3 in 01/02/2018 5:01pm Weight 393 lb 01/05/2018 12:00am Body Mass Index 49.1 kg/m^2 01/09/2018 12:00am Results Laboratory Results Test Name Result Units Flags Reference Collection Date/Time Result Date/ Time Comments White Blood Count 8.22 x10e3/uL 4.8-10.8 01/07/2018 7:0001/07/2018 7 :38am Red Blood Count 3.99 x10e6/uL L 4.3-5.7 01/07/2018 7:0001/07/2018 7: 38am Hemoglobin 12.1 g/dL L 14.0-18.0 01/07/2018 7:0001/07/2018 7:38am Hematocrit 35.3 % L 38.2-49.6 01/07/2018 7:0001/07/2018 7:38am Mean Corpuscular Volume 88.5 fL 81-99 01/07/2018 7:0001/07/2018 7: 38am Mean Corpuscular Hemoglobin 30.3 pg 28-32 01/07/2018 7:00am 01/07/2018 7:38am Mean Corpuscular Hemoglobin Concent 34.3 g/dL 31-35 01/07/2018 7:0001/07/2018 7:38am Red Cell Distribution Width 12.3 % 11.7-14.4 01/07/2018 7:002017 7:38am Platelet Count 287 x10e3/uL 140-360 01/07/2018 7:0001/07/2018 7: 38am Neutrophils (%) (Auto) 70.0 % 38.7-80.0 01/07/2018 7:0001/07/2018 7: 38am Lymphocytes (%) (Auto) 17.0 % L 18.0-39.1 01/07/2018 7:0001/07/2018 7 :38am Monocytes (%) (Auto) 6.7 % 4.4-11.3 01/07/2018 7:0001/07/2018 7: 38am Eosinophils (%) (Auto) 4.4 % 0.0-6.0 01/07/2018 7:0001/07/2018 7: 38am Basophils (%) (Auto) 0.9 % 0.0-1.0 01/07/2018 7:0001/07/2018 7:38am IM GRANULOCYTES % 1.0 % 0.0-1.0 01/07/2018 7:00am 01/07/2018 7:38am Neutrophils # (Auto) 5.8 2.1-6.9 01/07/2018 7:00am 01/07/2018 7:38am Lymphocytes # (Auto) 1.4 1.0-3.2 01/07/2018 7:00am 01/07/2018 7:38am Monocytes # (Auto) 0.6 0.2-0.8 01/07/2018 7:00am 01/07/2018 7:38am Eosinophils # (Auto) 0.4 0.0-0.4 01/07/2018 7:00am 01/07/2018 7:38am Basophils # (Auto) 0.1 0.0-0.1 01/07/2018 7:00am 01/07/2018 7:38am Absolute Immature Granulocyte (auto 0.08 x10e3/uL 0-0.1 01/07/2018 7: 00am 01/07/2018 7:38am Sodium Level 138 mmol/L 136-145 01/07/2018 7:00am 01/07/2018 8:21am Potassium Level 4.1 mmol/L 3.5-5.1 01/07/2018 7:00am 01/07/2018 8:21am Chloride Level 105 mmol/L 98-107 01/07/2018 7:00am 01/07/2018 8:21am Carbon Dioxide Level 25 mmol/L 22-29 01/07/2018 7:00am 01/07/2018 8: 21am Anion Gap 12.1 mmol/L 8-16 01/07/2018 7:00am 01/07/2018 8:21am Blood Urea Nitrogen 15 mg/dL 7-01/07/2018 7:00am 01/07/2018 8:21am Creatinine 0.76 mg/dL 0.72-1.25 01/07/2018 7:00am 01/07/2018 8:21am BUN/Creatinine Ratio 20 6-01/07/2018 7:00am 01/07/2018 8:21am Estimat Glomerular Filtration Rate > 60 ML/MIN 60- 01/07/2018 7:00am 8:21am Ranges were taken from the National Kidney Disease Education Program and the National Kid[employer] Foundation literature. Reference ranges: 60 or greater: Normal 16-59 (for 3 consecutive months): Chronic kidney disease 15 or less: Kidney failure Glucose Level 100 mg/dL 74-118 01/07/2018 7:00am 01/07/2018 8:21am Calcium Level 9.0 mg/dL 8.4-10.2 01/07/2018 7:00am 01/07/2018 8:21am Hemoglobin A1c Percent 5.0 % 4.0-7.0 01/02/2018 10:18am 01/02/2018 3: 53pm Lactic Acid Level 12.5 MG/DL 4.5-19.8 01/02/2018 10:1801/02/2018 11: 24am Uric Acid 4.3 mg/dL L 4.8-8.0 01/02/2018 10:18am 01/02/2018 3:55pm Total Bilirubin 0.8 mg/dL 0.2-1.2 01/03/2018 6:04am 01/03/2018 7:15am Aspartate Amino Transf (AST/SGOT) 11 IU/L 5-34 01/03/2018 6:042017 7:15am Alanine Aminotransferase (ALT/SGPT) 9 IU/L 0-55 01/03/2018 6:0401/03 7:15am Total Protein 6.7 g/dL 6.5-8.1 01/03/2018 6:0401/03/2018 7:15am Albumin 2.3 g/dL L 3.5-5.0 01/03/2018 6:0401/03/2018 7:15am Globulin 4.4 g/dL H 2.3-3.5 01/03/2018 6:0401/03/2018 7:15am Albumin/Globulin Ratio 0.5 L 0.8-2.0 01/03/2018 6:0401/03/2018 7: 15am Alkaline Phosphatase 73 IU/L 40-150 01/03/2018 6:0401/03/2018 7: 15am Vancomycin Level Trough 4.8 ug/mL L 5.0-10.0 01/05/2018 5:10pm 2017 6:07pm Body Fluid Type ASPIRATE 01/02/2018 11:15am 01/02/2018 12:28pm Body Fluid Color RED 01/02/2018 11:1501/02/2018 12:28pm Body Fluid Appearance TURBID 01/02/2018 11:1501/02/2018 12:28pm Body Fluid WBC 61939 cells/uL 01/02/2018 11:1501/02/2018 3:31pm Body Fluid RBC 14484 cells/uL 01/02/2018 11:1501/02/2018 3:31pm Body Fluid Neutrophils 79 % 01/02/2018 11:1501/02/2018 1:26pm Body Fluid Lymphocytes 11 % 01/02/2018 11:1501/02/2018 1:26pm Body Fluid Monocytes 8 % 01/02/2018 11:1501/02/2018 1:26pm Body Fluid Other Cells 2 % 01/02/2018 11:1501/02/2018 1:26pm Body Fluid Total Cells Counted 100 01/02/2018 11:1501/02/2018 1: 26pm Body Fluid Glucose 9 mg/dL 01/02/2018 11:1501/02/2018 12:14pm Body Fluid Total Protein 6.1 g/dL 01/02/2018 11:1501/02/2018 2: 28pm PROCEDURAL QC, WBC 10%/2 CELL MATCH 01/02/2018 11:15am 01/02/2018 3 :31pm PROCEDURAL QC, RBC 10%/ 2 CELL MATCH 01/02/2018 11:1501/02/2018 3:31pm C-Reactive Protein 256.8 mg/L H 0.0-4.9 01/02/2018 11:00am 01/03/2018 9: 33am Performed at: [address] [id number] Desulfurizer Hand: Marc Mccoy MD, Phone: [phone] Microbiology Results Procedure Source Organism/Result Collection Date/Time Result Date/Time Result Status Body Fluid Culture Aspirate STAPHYLOCOCCUS AUREUS 01/02/2018 11:15am 01/04 7:09am Final Blood Culture Blood NO GROWTH AFTER 5 DAYS, FINAL REPORT 01/02/2018 10: 18am 01/07/2018 10:33am Final Wound Culture Leg, Left STAPHYLOCOCCUS AUREUS 01/03/2018 1:04pm 01/05/2018 8:49[facility] [address] [address] Patient Name: JASEN DENISE II MR # : [id number] : 1985 Age/Sex: 32/M Admit Physician: STEVEN MICHEL MD Admit Date: 01/02/18 Location/Room/Bed: [facility]- 284-1 Discharge Date: Report: Discharge Summary FINAL DIAGNOSES 1. Left thigh abscess status post irrigation and debridement by orthopedic surgery. No evidence of septic arthritis. 2. Morbid obesity. 3. Hypertension. Mr. Denise is a 32-year-old male who came in with leg swelling and pain. Patient's knee was drained in the emergency room. Orthopedics was consulted and they found an abscess in the left lower extremity near the knee however the orthopedic notes says the patient's joint was not involved and there is no septic joint. Patient received IV antibiotics, incision and drainage. He has been doing well. He will be discharged home to follow up with his primary care physician. His wound culture grew out MSSA and antibiotics have been given by Dr. Thompson. STEVEN MICHEL MD Job#: [id number] DG Dictated By: STEVEN MICHEL MD Transcribed By: SMSTACIE on 01/05/18 <Electronically signed by STEVEN MICHEL MD>01/06/18 1306 Procedures Procedure Status Date Provider(s) Arthroscopy of left knee Completed 01/03/[address] extremity lower w contrast Active 01/02/[address] extremity lower w contrast Active 01/08/18 CHRISTI CORRAL MD Encounters Encounter Location Arrival/Admit Date Discharge/Depart Date Attending Provider Discharged Inpatient [facility] 01/02/18 2:18pm 01/09/18 4:48pm STEVEN MICHEL MD
[2018-01-15] MEDS ORDERED: HYDROMORPHONE 1MG/1ML INJ IV STA (09:56)
[2018-01-15] MEDS ORDERED: SODIUM CHLORIDE 0.9% 1000ML 1,000 ML IV STA (09:56)
[2018-01-15] MEDS ORDERED: VANCOMYCIN 1GM/NS 250 ML 250 ML IV STA (09:56)
[2018-01-15] MEDS ORDERED: ONDANSETRON HCL INJ 2 MG/ML VIAL IV STA (09:56)
[2018-01-15 10:24] LABS: BASOPHILS # (AUTO) 0.1 (0.0-0.1); BASOPHILS % 1.2 % (0.0-1.0); EOSINOPHILS # (AUTO) 0.3 (0.0-0.4); EOSINOPHILS % 3.8 % (0.0-6.0); HEMOGLOBIN 14.1 g/dL (14.0-18.0); LYMPHOCYTES # (AUTO) 2.4 (1.0-3.2); LYMPHOCYTES % 31.8 % (18.0-39.1); MEAN CORPUSCULAR HEMOGLOBIN 30.9 pg (28-32); MEAN CORPUSCULAR HGB CONC 35.3 g/dL (31-35); MEAN CORPUSCULAR VOLUME 87.5 fL (81-99); MONOCYTES # (AUTO) 0.5 (0.2-0.8); MONOCYTES % 6.5 % (4.4-11.3); NEUTROPHILS # (AUTO) 4.3 (2.1-6.9); NEUTROPHILS % 56.2 % (38.7-80.0); PLATELET COUNT 369 x10e3/uL (140-360); RED BLOOD COUNT 4.57 x10e6/uL (4.3-5.7); RED CELL DISTRIBUTION WIDTH 12.8 % (11.7-14.4)
[2018-01-15 10:35] LABS: INR 1.05; PARTIAL THROMBOPLASTIN TIME 31.3 seconds (23.8-35.5); PROTHROMBIN TIME 12.9 seconds (11.9-14.5)
[2018-01-15 10:42] LABS: ALANINE AMINOTRANSFERASE 20 IU/L (0-55); ALBUMIN 3.6 g/dL (3.5-5.0); ALBUMIN/GLOBULIN RATIO 0.7 (0.8-2.0); ALKALINE PHOSPHATASE 81 IU/L (40-150); ANION GAP 15.1 mmol/L (8-16); BLOOD UREA NITROGEN 17 mg/dL (7-26); BUN/CREATININE RATIO 22 (6-25); CALCIUM 9.4 mg/dL (8.4-10.2); CARBON DIOXIDE 22 mmol/L (22-29); CHLORIDE 102 mmol/L (98-107); CREATININE, SERUM 0.78 mg/dL (0.72-1.25); EST GLOMERULAR FILTRATION RATE > 60 ML/MIN (60-); GLUCOSE 122 mg/dL (74-118); POTASSIUM 4.1 mmol/L (3.5-5.1); SODIUM 135 mmol/L (136-145)
[2018-01-15] MEDS ORDERED: ONDANSETRON HCL 4 MG ORAL DISINTEGRATING TAB ONE (10:54)
[2018-01-15] MEDS ORDERED: ONDANSETRON HCL 4 MG ORAL DISINTEGRATING TAB PO ONE (11:15)
[2018-01-15 14:27] VITALS: BP 130/92
== END 2018-01-15 14:40 | disposition home or self-care (01) ==
LOC: ER 09:27
DX: L02.416 Cutaneous abscess of left lower limb (principal); L03.116 Cellulitis of left lower limb; B95.61 Methicillin susceptible Staphylococcus aureus infection as the cause of diseases classified elsewhere; Z91.14 Patient's other noncompliance with medication regimen
CPT/HCPCS: 10061; 99284; J3370; J7030

== ENCOUNTER 2018-03-28 05:04 | Emergency (ER) | payer SELFPAY ==
[~2018-03-28] VITALS: Ht 190.5 cm; Wt 178.3 kg
[2018-03-28 05:22] VITALS: BP 160/102
[2018-03-28] MEDS ORDERED: DIAZEPAM 5 MG TAB PO SCH (05:30)
== END 2018-03-28 06:03 | disposition home or self-care (01) ==
LOC: ER 05:04
DX: M54.41 Lumbago with sciatica, right side (principal)
CPT/HCPCS: 99283